=== PATIENT | female | born 1950 | race Caucasian/White ===

== ENCOUNTER 2024-11-19 13:50 | Emergency (ER) | payer MEDICARE ==
[~2024-11-19] VITALS: Ht 152.4 cm; Wt 69.8 kg
== END 2024-11-19 21:48 | disposition home or self-care (01) ==
LOC: ER 13:50
DX: N39.0 Urinary tract infection, site not specified (principal); R55 Syncope and collapse; J44.89 Other specified chronic obstructive pulmonary disease; Z91.018 Allergy to other foods